=== PATIENT | male | born 1980 | race Caucasian/White ===

== ENCOUNTER 2016-07-10 05:15 | Emergency (ER) | payer OTHER ==
[~2016-07-10 05:15] MED LIST: NO MEDICATIONS; PROTONIX PO; ZOFRAN PO
[2016-07-11] MEDS ORDERED: STEROID CREAM (18:45)
[2016-07-11] MEDS ORDERED: PREDNISONE (18:46)
== END 2016-07-10 06:02 | disposition home or self-care (01) ==
LOC: SED 05:15
DX: L23.7 Allergic contact dermatitis due to plants, except food (principal); F41.9 Anxiety disorder, unspecified
CPT/HCPCS: 96372; 99283; J2930

== ENCOUNTER 2016-07-11 19:12 | Emergency (ER) | payer OTHER ==
[~2016-07-11 19:12] MED LIST changes: +PREDNISONE; +STEROID CREAM
== END 2016-07-11 19:42 | disposition home or self-care (01) ==
LOC: SED 19:12
DX: L23.7 Allergic contact dermatitis due to plants, except food (principal)
CPT/HCPCS: 99282